=== PATIENT | male | born 1935 | race Caucasian/White ===

== ENCOUNTER 2022-06-20 04:24 | Day surgery (SDC) | payer BC ==
[2022-06-20 08:15] VITALS: BMI 26.2
[2022-06-20 10:11] VITALS: TEMP 97.8
[2022-06-20 10:59] VITALS: BP 159/70; PULSE 62; RESP 13
== END 2022-06-20 11:20 | disposition home or self-care (01) ==
LOC: JASU-ENDO 04:24
PROVIDERS: ATTEND Internal Medicine Gastroenterology
PROC: 0DBN8ZX Excision of Sigmoid Colon, Via Natural or Artificial Opening Endoscopic, Diagnostic (ICD-10-PCS; principal; 2022-06-20 10:00)
DX: Z12.11 Encounter for screening for malignant neoplasm of colon (principal); D12.5 Benign neoplasm of sigmoid colon; K57.30 Diverticulosis of large intestine without perforation or abscess without bleeding; K64.8 Other hemorrhoids; I10 Essential (primary) hypertension; R73.03 Prediabetes
CPT/HCPCS: 88305-TC